=== PATIENT | female | born 1955 | race Caucasian/White ===

== ENCOUNTER 2020-02-15 16:33 | Emergency (ER) | payer MEDICARE, MEDICAID ==
[~2020-02-15] VITALS: Ht 157.5 cm; Wt 63.6 kg
[2020-02-15 16:36] VITALS: BP 134/91
[2020-02-15] MEDS ORDERED: CEPH500C5 PO (17:19)
== END 2020-02-15 17:31 | disposition home or self-care (01) ==
LOC: ER 16:34
DX: L03.115 Cellulitis of right lower limb (principal); Z88.5 Allergy status to narcotic agent; Z79.2 Long term (current) use of antibiotics; Z79.899 Other long term (current) drug therapy
CPT/HCPCS: 99283; 99284

== ENCOUNTER 2022-02-27 08:47 | Emergency (ER) | payer MEDICARE, MEDICAID ==
[~2022-02-27] VITALS: Ht 149.9 cm; Wt 60.0 kg
[2022-02-27 08:52] VITALS: BP 127/61
--- NOTE | 2022-02-27 09:00 | NUR ---
AFTER TRIAGING PT, SHE DECIDED HE DID NOT WANT TO BE SEEN AND STATED SHE WILL "JUST GO HOME AND REST IT"(HER ANKLE). AMBULATED OUT OF DEPT WITH STEADY GAIT.
== END 2022-02-27 09:01 | disposition left against medical advice (07) ==
LOC: ER 08:47
DX: M79.671 Pain in right foot (principal); Z53.21 Procedure and treatment not carried out due to patient leaving prior to being seen by health care provider

== ENCOUNTER 2025-02-10 00:15 | Emergency (ER) | payer MEDICARE, MEDICAID ==
[~2025-02-10] VITALS: Ht 154.9 cm; Wt 65.9 kg
--- NOTE | 2025-02-10 03:40 | Physician Documentation ---
HPI ~ General Chief Complaint: Tooth Problem Stated Complaint: TOOTH PAIN Time Seen by MD: 03:39 OK to notify your PCP?: Yes Primary Medical Doctor: JAD MCNAIR, PAGE Source: patient, RN/MD, RN notes reviewed, old records Mode of Arrival: POV Exam Limitations: no limitations History of Present Illness HPI Comment THIS PATIENT WAS SEEN IN BED 10 This patient is a 69 y/o female who presents to ED with chief complaint of dental pain. Patient states that she has had worsening pain to her left upper teeth, which has been worsening over the past several days. Patient states she believes she has some broken teeth in that area. She did try going to a clinic and was prescribed amoxacillin 3 days ago which she has been taking with no relief. Patient has been taking ibuprofen at home for pain. Denies any fevers. Patient denies any other associated symptoms at this time. Patient denies any other alleviating or exacerbating factors. Medication Reconciliation Allergies: Coded Allergies: codeine (Unverified Allergy, Unknown, 02/10/25) erythromycin base (Unverified Allergy, Unknown, 02/10/25) Scheduled Amox Tr/Potassium Clavulanate 875/125 MG (Augmentin 875/125 MG), 1 TAB PO Q12H Rifampin (Rifampin), 1 CAP PO Q12H Past Medical History Past Medical History: No Pertinent History Past Surgical History: noncontributory Smoking Status: Never smoker Alcohol Use: None Drug Use: none Lives In: Home Review of Systems All Other Systems at this time: Reviewed and Negative ENT: Reports: mouth pain Physical Exam Vital Signs: RN Vital Signs have been reviewed: Yes, Temperature: 98.7, Heart R ate: 94, Respiratory Rate: 20, BP: 144/78, Pulse Oximetry: 99, Weight: 65.910 Physical Exam General: The patient is well developed, well nourished, nontoxic appearing and is in no acute distress. Skin: [place], warm and dry with no rashes. HEENT: Left upper teeth show corrosion and poor dentition. Head was normocephalic and atraumatic. Eyes - pupils equal, round, reactive to light and accommodation. Extraocular movements were intact. Conjunctivae were nonicteric. The mouth and oropharynx were clear with moist mucous membranes. There were no pharyngeal exudates or erythema. Neck: Supple and nontender. There was no jugular venous distention, lymphadenopathy, thyromegaly or masses. Chest: Clear to auscultation bilaterally without wheezes, rales or rhonchi. No accessory muscle use. No dullness to percussion. Heart: Rate regular and rhythmic. S1, S2. No murmurs. Palpation of the chest wall was normal. No rubs or thrills. Abdomen: Soft, nontender and nondistended. Positive bowel sounds. No guarding or rebound. No hepatosplenomegaly or palpable masses. Extremities: No cyanosis, clubbing or edema. The patient moves all extremities. Pulses were equal and symmetric. Neurologic: Cranial nerves II-XII were intact. Sensation was intact to light touch throughout. Motor strength was 5/5 in all four extremities. Deep tendon reflexes were intact in both upper and lower extremities. Psychologic: The patient was oriented to person, place and time. The patient demonstrated appropriate judgement and insight. Progress Results/Orders Reviewed/noted all lab results: Yes Results/Orders Completed Orders - ANVEED YEAGER MD Amox Tr/Potassium Clavulanate (Augmentin (02/10/25 03:40) Hydrocodone/Apap 10/325 ([place] 10/325mg (02/10/25 03:45) Rifampin Capsule (Rifampin Capsule) (02/10/25 03:50) Medications Received in ER Medications (Trade) Dose Ordered Sig/Mich Route PRN Reason Start Time Stop Time Status Last Admin Dose Admin (Augmentin 875-125mg tablet) 1 tab ONCE ONCE PO 02/10/25 03:40 02/10/25 03:42 DC 02/10/25 03:52 1 TAB ([place] 10/325mg tab) 1 tab ONCE ONCE PO 02/10/25 03:45 02/10/25 03:46 DC 02/10/25 03:52 1 TAB (rifampin capsule) 600 mg ONCE PO 02/10/25 03:50 02/10/25 04:10 DC 02/10/25 04:05 600 MG Vital Signs 02/10/25 02/10/25 02/10/25 02/10/25 00:17 03:38 03:52 04:08 Temp 98.7 98.1 Pulse 94 80 Resp 20 16 14 16 B/P (MAP) 144/78 124/80 Pulse Ox 99 99 Re-Evaluation Re-Evaluation : Re-Evaluation: Improved Progress Patient was seen and examined. Patient had very poor dentition. Gumline was reassuring no facial cellulitis. Antibiotics were given including rifampin to help the bacterial load. Patient does not have a dentist may need oral maxillary facial surgery for multiple root canals and removal of teeth. Patient received pain meds antibiotics and was discharged home. Medical Decision Making Additional info obtained from: old records Differential Dx:Considerations: Include: Alveolar fracture, Alveolar osteitis, Facial Cellulitis, Periapical abscess, Peridontal abscess, Pulpitis, Tooth Fracture, Other Departure Time of Disposition: 03:48 Disposition: 01 HOME / SELF CARE / HOMELESS Impression: Primary Impression: Dentalgia Additional Impression: Periapical abscess Condition: Stable Discharge Instructions: Dental Caries, Adult, Dental Pain Additional Instructions: Take antibiotics as prescribed. Follow up with a dentist as soon as possible. Return to ER for new or worsening symptoms or other concerns. Referrals: NO PRIMARY CARE PROVIDER (PCP) Prescriptions Rifampin (Rifampin) 300 Mg Capsule 1 CAP PO Q12H for 5 Days, #10 CAP 0 Refills Prov: NAVEED YEAGER MD 02/10/25 Amox Tr/Potassium Clavulanate 875/125 MG (Augmentin 875/125 MG) 875 Mg-125 Mg Tablet 1 TAB PO Q12H for 14 Days, #28 TAB 1 Refill Prov: NAVEED YEAGER MD 02/10/25 Education Educated: Patient Educated regarding: diagnosis, prognosis, need for follow up, other Signature Scribe Signature: Scribed for Naveed Yeager MD by Elsie Hale . 02/10/25 05:39 Attestation: The note accurately reflects work and decisions made by me.Naveed Yeager MD 02/10/25 03:40 NAVEED YEAGER MD Feb 10, 2025 03:40
[2025-02-10] MEDS ORDERED: AMOX-580 PO (03:47)
[2025-02-10] MEDS ORDERED: RIFA300C65 PO (03:51)
[2025-02-10] MEDS: amox tr/potassium clavulanate 875/125mg TAB PO ONE (03:52)
[2025-02-10] MEDS: HYDROcodone/acetaminophen 10/325mg tab PO ONE (03:52)
[2025-02-10] MEDS: rifampin 300mg capsule PO SCH (04:05)
[2025-02-10 04:08] VITALS: BP 124/80; PULSE 80; RESP 16; TEMP 98.1; O2SAT 99
== END 2025-02-10 04:10 | disposition home or self-care (01) ==
LOC: ER 00:16
DX: K04.7 Periapical abscess without sinus (principal); Z88.1 Allergy status to other antibiotic agents; Z88.5 Allergy status to narcotic agent; Z79.899 Other long term (current) drug therapy
CPT/HCPCS: 99284